=== PATIENT | female | born 1985 | race Caucasian/White ===

== ENCOUNTER 2020-10-18 08:34 | Observation (INO) ==
[2020-10-18] MEDS ORDERED: Naloxone 0.4 MG/ML INJ IVP PRN (13:41)
[2020-10-18] MEDS ORDERED: Mag Hydrox/Al Hydrox/Simeth 30 ML UDC PO PRN (13:41)
[2020-10-18] MEDS ORDERED: Melatonin 3 MG TABLET PO PRN (13:41)
[2020-10-18] MEDS ORDERED: Ondansetron 4 MG/2 ML VIAL IVP PRN (13:41)
[2020-10-18] MEDS ORDERED: Ketorolac 15 MG/ML VIAL IVP PRN (14:07)
[2020-10-18] MEDS ORDERED: Acetaminophen 325 MG TABLET PO PRN (14:07)
[2020-10-18] MEDS ORDERED: Ringers Solution, Lactated 1,000 ML IVC SCH (14:15)
[2020-10-18] MEDS ORDERED: Bisacodyl 10 MG RECTAL SUPPOSITORY RC ONE (15:31)
[2020-10-18] MEDS: 0.9 % Sodium Chloride 1,000 ML IVC SCH (15:52)
[2020-10-18] MEDS: Piperacillin/Tazobactam 3.375 GM in 0.9 % Sodium Chloride Mini Bag 100 ML IVPB SCH (15:52)
[2020-10-18] MEDS: Ketorolac 15 MG/ML VIAL IVP PRN ×2 (16:47→22:33)
[2020-10-18] MEDS ORDERED: Lactulose Oral Soln 20 GM/30 ML UDC PO ONE (17:32)
[2020-10-18] MEDS ORDERED: Morphine Sulfate 2 MG/ML SYRINGE IVP ONE (19:59)
[2020-10-18] MEDS: Acetaminophen IV 500 MG/50 ML BAG IVPB SCH (20:15)
[2020-10-18] MEDS ORDERED: Isovue-370 500 ML BOTTLE IVP ONE (20:22)
[2020-10-18] MEDS: polyethylene glycoL 3350 17 GM POWD.PACK PO SCH (22:23)
[2020-10-19] MEDS: Piperacillin/Tazobactam 3.375 GM in 0.9 % Sodium Chloride Mini Bag 100 ML IVPB SCH ×3 (00:03→15:02)
[2020-10-19] MEDS: 0.9 % Sodium Chloride 1,000 ML IVC SCH ×3 (00:03→15:54)
[2020-10-19 01:16] LABS: Basophils % 0.1 %; Hematocrit 33.8 % (35.3-44.9); Immature Granulocytes % 0.5 % (0-4); Lymphocytes # 1.8 K/mcL (0.6-4.6); Lymphocytes % 7.9 %; Mean Corpuscular HGB Conc 32.5 g/dL (31.6-35.5); Mean Corpuscular Hemoglobin 29.2 pg (28.0-33.3); Mean Corpuscular Volume 89.7 fL (83.0-100.0); Mean Platelet Volume 10.5 fL (9.4-12.4); Monocytes # 0.8 K/mcL (0.0-1.3); Monocytes % 3.5 %; Neutrophils # 20.4 K/mcL (1.6-8.9); Platelet Count 295 K/mcL (140-400); Red Blood Count 3.77 M/mcL (3.82-4.97); White Blood Count 23.2 K/mcL (4.3-11.1)
[2020-10-19 01:33] LABS: BUN/Creatinine Ratio 27 (6-26); Blood Urea Nitrogen 13 mg/dL (6-20); Calcium 8.1 mg/dL (8.6-10.3); Carbon Dioxide 19 mEq/L (23-29); Chloride 110 mEq/L (98-107); Glucose 95 mg/dL (70-105); Magnesium 1.7 mg/dL (1.6-2.6); Osmolality,Calculated 288 (280-300); Potassium 3.6 mEq/L (3.5-5.1); Sodium 139 mEq/L (136-145); eGFR For African Americans > 60 (> 60); eGFR For Non-African Americans > 60 (> 60)
[2020-10-19] MEDS: Acetaminophen IV 500 MG/50 ML BAG IVPB SCH ×4 (03:16→20:59)
[2020-10-19] MEDS ORDERED: 0.9 % Sodium Chloride 1,000 ML IVC ONE (05:48)
[2020-10-19] MEDS: Ketorolac 15 MG/ML VIAL IVP PRN (07:55)
[2020-10-19] MEDS: polyethylene glycoL 3350 17 GM POWD.PACK PO SCH ×2 (07:56→20:58)
[2020-10-19] MEDS ORDERED: Doxycycline 100 MG CAPSULE PO ONE (15:21)
[2020-10-20] MEDS: 0.9 % Sodium Chloride 1,000 ML IVC SCH ×2 (00:10→08:55)
[2020-10-20] MEDS: Piperacillin/Tazobactam 3.375 GM in 0.9 % Sodium Chloride Mini Bag 100 ML IVPB SCH ×2 (00:11→08:55)
[2020-10-20] MEDS: Acetaminophen IV 500 MG/50 ML BAG IVPB SCH ×2 (03:17→08:56)
[2020-10-20 06:22] LABS: Basophils # 0.1 K/mcL (0.0-0.2); Basophils % 0.5 %; Eosinophils # 0.2 K/mcL (0.0-0.6); Eosinophils % 1.8 %; Hemoglobin 10.5 g/dL (11.5-15.4); Immature Granulocytes % 0.3 % (0-4); Lymphocytes # 4.1 K/mcL (0.6-4.6); Lymphocytes % 36.2 %; Mean Corpuscular HGB Conc 32.8 g/dL (31.6-35.5); Mean Corpuscular Hemoglobin 29.7 pg (28.0-33.3); Mean Corpuscular Volume 90.7 fL (83.0-100.0); Mean Platelet Volume 10.3 fL (9.4-12.4); Monocytes # 0.5 K/mcL (0.0-1.3); Monocytes % 4.1 %; Neutrophils # 6.5 K/mcL (1.6-8.9); Platelet Count 255 K/mcL (140-400); Red Blood Count 3.53 M/mcL (3.82-4.97); Red Cell Distribution Width 12.5 % (11.5-14.5); Segmented Neutrophils % 57.1 %
[2020-10-20 06:32] LABS: White Blood Count 11.4 K/mcL (4.3-11.1)
[2020-10-20 06:45] LABS: BUN/Creatinine Ratio 31 (6-26); Blood Urea Nitrogen 17 mg/dL (6-20); Calcium 7.8 mg/dL (8.6-10.3); Carbon Dioxide 21 mEq/L (23-29); Chloride 116 mEq/L (98-107); Glucose 60 mg/dL (70-105); Osmolality,Calculated 293 (280-300); Potassium 3.6 mEq/L (3.5-5.1); Sodium 142 mEq/L (136-145); eGFR For African Americans > 60 (> 60); eGFR For Non-African Americans > 60 (> 60)
[2020-10-20] MEDS: polyethylene glycoL 3350 17 GM POWD.PACK PO SCH (08:54)
[2020-10-20 11:22] VITALS: BP 116/84; PULSE 88; TEMP 98.6; O2SAT 98
== END 2020-10-20 14:09 | disposition home or self-care (01) ==
LOC: 2ANU
PROVIDERS: ADMIT Internal Medicine; ATTEND Internal Medicine